=== PATIENT | male | born 1970 | race Caucasian/White ===

== ENCOUNTER 2024-09-30 04:33 | Inpatient (IN) | payer BC ==
[2024-09-30] MEDS ORDERED: ONDANSETRON 4 MG/2 ML VIAL ONE (04:50)
[2024-09-30] MEDS: SODIUM CHLORIDE 1,000 ML IV STA (05:00)
[2024-09-30] MEDS: ONDANSETRON 4 MG/2 ML VIAL IVPUSH ONE (05:00)
[2024-09-30] MEDS ORDERED: FAMOTIDINE 20 MG/50 ML IVPB 20 MG/50 ML MG IVPB ONE (05:02)
[2024-09-30] MEDS: FAMOTIDINE 20 MG/50 ML IVPB 20 MG/50 ML MG IVPB ONE (05:03)
[2024-09-30] MEDS ORDERED: ACETAMINOPHEN INJECTION 100 ML ONE (05:54)
[2024-09-30] MEDS: ACETAMINOPHEN 1000 MG/100 ML BAG IVPB ONE (05:56)
[2024-09-30 06:48] LABS: HEMATOCRIT 53.1 % (40.1-51.0); MCHC 33.9 g/dl (32.3-36.5); MEAN CELL VOLUME 94.7 fl (79.0-92.2); MEAN PLT VOLUME 10.3 fl (9.4-12.4); PLATELET COUNT 351 x10^3/uL (163-337); RDW 12.2 % (12.2-16.1)
[2024-09-30 07:23] LABS: HCV DIAGNOSTIC IN-HOUSE W/RFLX NON-REACTIVE (NONREACTIVE); HIV INTERPRETATION NEGATIVE (NEGATIVE)
[2024-09-30 07:36] LABS: ALBUMIN 4.4 g/dl (3.4-5.0); BILIRUBIN,TOTAL 0.6 mg/dL (0.2-1); BLOOD UREA NITROGEN 14.2 mg/dL (7-18); CALCIUM 10.5 mg/dL (8.5-10.1); CREATININE 1.1 mg/dL (0.55-1.3); POTASSIUM 4.4 mmol/L (3.5-5.1); TOT PROT 9.5 g/dl (6.4-8.2)
[2024-09-30 08:31] LABS: INR 1.04 (0.83-1.09); PROTHROMBIN TIME (PATIENT) 11.4 SEC (9.7-13.0)
[2024-09-30] MEDS: morphine CARPU-JECT 2 MG/1 ML DISP.SYRIN IVPUSH ONE (08:31)
[2024-09-30 09:36] LABS: MONOCYTE # 1.22 x10^3/uL (0.30-0.82)
[2024-09-30 14:28] VITALS: BMI 27.3
[2024-09-30] MEDS ORDERED: ELECTROLYTE-148 SOLN 1,000 ML IV SCH (16:00)
[2024-09-30] MEDS: LACTATED RINGERS SOLUTION 1,000 ML/1,000 ML INFUS.BAG IV SCH (17:03)
[2024-09-30] MEDS: IOHEXOL (OMNIPAQUE IV) 350 MG/ML - 100 ML BOTTLE PO ONE (17:57)
[2024-10-01] MEDS: ACETAMINOPHEN 1000 MG/100 ML BAG IVPB ONE ×2 (06:31→21:52)
[2024-10-01 07:59] LABS: ABSOLUTE IMMATURE GRANULOCYTES 0.01 x10^3/uL (0.0-0.031); BASOPHILS # 0.01 x10^3/uL (0.01-0.08); EOSINOPHIL % 0.2 % (0.8-7.0); EOSINOPHILS # 0.02 x10^3/uL (0.04-0.54); HEMOGLOBIN 15.5 g/dL (13.7-17.5); MCHC 33.7 g/dl (32.3-36.5); MEAN CELL VOLUME 97.9 fl (79.0-92.2); MEAN PLT VOLUME 9.6 fl (9.4-12.4); MONOCYTE # 0.71 x10^3/uL (0.30-0.82); MONOCYTE % 7.5 % (5.3-12.2); PLATELET COUNT 257 x10^3/uL (163-337); RDW 12.4 % (12.2-16.1)
[2024-10-02 08:03] LABS: ABSOLUTE IMMATURE GRANULOCYTES 0.01 x10^3/uL (0.0-0.031); BASOPHILS # 0.01 x10^3/uL (0.01-0.08); EOSINOPHIL % 0.5 % (0.8-7.0); EOSINOPHILS # 0.04 x10^3/uL (0.04-0.54); HEMATOCRIT 41.8 % (40.1-51.0); HEMOGLOBIN 14.4 g/dL (13.7-17.5); MCHC 34.4 g/dl (32.3-36.5); MEAN PLT VOLUME 9.9 fl (9.4-12.4); MONOCYTE # 0.69 x10^3/uL (0.30-0.82); MONOCYTE % 7.8 % (5.3-12.2); PLATELET COUNT 225 x10^3/uL (163-337); RDW 11.8 % (12.2-16.1)
[2024-10-02 08:56] LABS: BILIRUBIN,TOTAL 0.7 mg/dl (0.2-1); CALCIUM 8.9 mg/dl (8.5-10.1); CREATININE 0.8 mg/dl (0.6-1.3); POTASSIUM 4.2 mmol/L (3.5-5.1); TOT PROT 6.5 g/dl (6.4-8.2)
[2024-10-03 03:14] VITALS: RESP 18
[2024-10-03] MEDS: ACETAMINOPHEN 1000 MG/100 ML BAG IVPB PRN (05:59)
[2024-10-03 06:22] VITALS: BP 140/105; PULSE 82; TEMP 98.8
[2024-10-03 08:01] LABS: BASOPHILS # 0.01 x10^3/uL (0.01-0.08); EOSINOPHIL % 0.8 % (0.8-7.0); EOSINOPHILS # 0.07 x10^3/uL (0.04-0.54); HEMATOCRIT 43.8 % (40.1-51.0); MCHC 34.2 g/dl (32.3-36.5); MEAN CELL VOLUME 96.3 fl (79.0-92.2); MEAN PLT VOLUME 9.8 fl (9.4-12.4); MONOCYTE # 0.63 x10^3/uL (0.30-0.82); MONOCYTE % 7.3 % (5.3-12.2); PLATELET COUNT 241 x10^3/uL (163-337); RDW 11.8 % (12.2-16.1)
[2024-10-03 08:29] LABS: CALCIUM 9.3 mg/dl (8.5-10.1); CREATININE 0.8 mg/dl (0.6-1.3); PHOSPHOROUS 3.8 (2.5-4.9); POTASSIUM 4.3 mmol/L (3.5-5.1)
== END 2024-10-03 11:22 | disposition home or self-care (01) | DRG 390 ==
LOC: FER 04:33 → FM/S 13:07
PROVIDERS: ATTEND Internal Medicine
DX: K56.609 Unspecified intestinal obstruction, unspecified as to partial versus complete obstruction (principal); I10 Essential (primary) hypertension; E78.5 Hyperlipidemia, unspecified; F10.10 Alcohol abuse, uncomplicated
CPT/HCPCS: 36415; 74018-TC-FY; 74177-TC; 80048; 80053; 83690; 83735; 84100; 84484; 85025; 85610; 86803; 87389; 93005; 99285-25; J0131; Q9967